=== PATIENT | female | born 1980 | race Caucasian/White ===

== ENCOUNTER 2017-10-14 20:10 | Emergency (ER) | payer MEDICAID ==
[~2017-10-14] VITALS: Ht 160 cm; Wt 62.4 kg
[2017-10-14 20:20] VITALS: BP 118/57
--- NOTE | 2017-10-14 20:48 | NUR ---
PATIENT AMBULATED TO ER CHAIR E
[2017-10-14 20:50] VITALS: BP 118/57
--- NOTE | 2017-10-14 20:50 | NUR ---
PATIENT PRESENTS TO ED WITH C/O RT GREAT INGROWN TOENAIL PT DENIES N/V/D; SKIN IS PINK/WARM/DRY; AAOX4 WITH EVEN AND STEADY GAIT; LUNGS CLEAR BL; HR EVEN AND REGULAR; PT DENIES ANY FEVER, CP, SOB, OR COUGH AT THIS TIME; PATIENT STATES PAIN OF 10/10 AT THIS TIME; VSS; PATIENT POSITIONED FOR COMFORT; HOB ELEVATED; BEDRAILS UP X2; BED DOWN. ER MD MADE AWARE OF PT STATUS.
== END 2017-10-14 22:21 | disposition home or self-care (01) ==
LOC: MED 20:10
DX: L03.011 Cellulitis of right finger (principal)
CPT/HCPCS: 99283